=== PATIENT | male | born 1955 | race Caucasian/White ===

== ENCOUNTER → 2017-11-08 09:44 | Outpatient (CLI) | payer OTHER, SELFPAY ==
--- NOTE | 2017-11-08 09:49 | RAD_ITS ---
STUDY: X-RAY - RIGHT SHOULDER REASON FOR EXAM: Male, 62 years old. Bilateral shoulder pain TECHNIQUE: 4 view(s) of the shoulder. COMPARISON: None. FINDINGS: Normal glenohumeral articulation. There is degenerative arthrosis of the acromioclavicular joint without inferior osseous spur formation. Normal acromion. Normal humeral head and visualized proximal humerus. The soft tissue structures are unremarkable. Normal visualized pulmonary apex. RAD/Shoulder min 2 Views IMPRESSION: Degenerative changes of the acromioclavicular joint. The glenohumeral joint appears normal. There is no evidence of calcific tendinitis or bursitis. Electronically Signed: Rick Thakkar MD at 17:17 EDT , Service support ,
--- NOTE | 2017-11-08 09:49 | RAD_ITS ---
STUDY: X-RAY - LEFT SHOULDER REASON FOR EXAM: Male, 62 years old. Bilateral shoulder pain TECHNIQUE: 4 view(s) of the shoulder. COMPARISON: None. FINDINGS: Normal glenohumeral articulation. There mild degenerative changes of the left acromioclavicular joint. Normal acromion. Normal humeral head and visualized proximal humerus. The soft tissue structures are unremarkable. Normal visualized pulmonary apex. RAD/Shoulder min 2 Views IMPRESSION: Mild degenerative changes of the left acromioclavicular joint. The left glenohumeral articulation appears normal. Electronically Signed: Rick Thakkar MD at 21:51 EDT , Service support ,
== END ==
PROVIDERS: Family Provider Family Medicine; PCP Family Medicine; Visit Provider Family Medicine
DX: M25.511 Pain in right shoulder (principal); M25.512 Pain in left shoulder
CPT/HCPCS: 73030

== ENCOUNTER → 2018-02-11 10:20 | Outpatient (CLI) | payer OTHER, SELFPAY ==
[2018-02-11 11:37] LABS: PSA,Total- Diagnostic < 0.01 ng/mL (0.0-4.0)
== END ==
PROVIDERS: Family Provider Family Medicine; PCP Family Medicine; Visit Provider Urology
DX: Z85.46 Personal history of malignant neoplasm of prostate (principal)
CPT/HCPCS: 36415; 84153

== ENCOUNTER 2018-02-15 14:00 | Outpatient (RCR) | payer OTHER, SELFPAY ==
--- NOTE | 2018-01-18 18:57 | HP.PTEVAL_ITS ---
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 Date of Evaluation: 01/03/18 Physical Therapist: Skyler Blake - Visit Plan Frequency: 2x /Week Duration: 4 Weeks Plan: Start with AAROM and AROM exercises, add in joint mobilizations as tolerated. Once symptoms have started to reduce add in scapular strengthening and RTC strengthening/stability exericses. May use IFC and ice as needed. - Subjective Subjective: Pt. 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 Pt. reports having increased B shoulder pain for a few years, but recently has become worse. 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 Pt. reports increased pain with reaching, lifting, sleeping. Decreased pain: rest. Pt. did have recent xray showing degenerative changes in bilateral shoulders at AC joint, but GH joint appears to be intact. No MRI at this time. He reports L arm is worse than R. Pt. is R handed. Pt. has not trialed PT or had any pre surgeries. Pt. denies N/T in either UE and no radiating pain down his arms. Pt. is hopeful to reduce symptoms to continue with all activities without limitations. - Pain R shoulder Pain Intensity (Out of 10): 1 Pain Intensity Range: 1, 4 L shoulder Pain Intensity (Out of 10): 2 Pain Intensity Range: 0, 8 - Objective POSTURE: Pt. had rounded shoulder, increased thoracic kyphosis, protracted scapulae bilaterally. Pt. is able to correct with TCing, but not fully, no increase in pain with attempts. PALPATION: Pt. has increased soreness at subacromial space of L shoulder, minimal pain in R shoulder. Pt. has no pain throughout bilateral periscapular musculature. NEUROLOGICAL: Pt. has normal sensation throughout bilateral UEs. Pt. has 2+ biceps and triceps DTR bilaterally. Pt. has no signs of cervical impingment. ROM: R shoulder- flexion 165deg mild increase NW, abd 160deg mild increase NW, functional ER C4, functional IR L5. L shoulder- flexion 155deg increase nW, abd 145deg increase nW, functional ER C2 increase nW, functional IR L5 increase NW. Cervical ROM- stiff into ext no reproduction of symptoms. MMT: R shoulder- flexion 4+/5 increase NW, abd 4/5 increase NW, ER 4+/5 increase NW, abd 5/5 NE. L shoulder- flexion 4/5 increase NW, abd 4/5 increase NW, ER 4/5 increase NW, IR 4+/5 increase NW. - Special Tests R Shoulder Lift Off Test - Subscapular Tear: Negative R Shoulder Drop Sign - IS Test: Negative R Shoulder Empty Can - SS: Positive R Shoulder Belly Press - SupScap: Negative R Shoulder Neer - Impingement: Positive R Shoulder Scott Mao - Impingement: Positive R Shoulder Biceps Load Test - Labrum: Negative R Shoulder Speeds Test - Labrum/Biceps: Negative R Shoulder Shrug Sign - OA/Adhesive Capsulitis: Negative L Shoulder External Rotation Lag Test - RC Tear: Negative L Shoulder Lift Off Test - Subscapular Tear: Negative L Shoulder Drop Sign - IS Test: Negative L Shoulder Empty Can - SS: Positive L Shoulder Neer - Impingement: Positive L Shoulder Scott Mao - Impingement: Positive L Shoulder Shrug Sign - OA/Adhesive Capsulitis: Negative - Goals Goal 1:: Pt. to be I with HEP. Goal Time Frame: 4-6 Weeks Goal 2:: Pt. to have increased B shoulder ROM to full active with 0-1/ 10 pain allowing for increased tolerance to all ADLs and work activities. Goal Time Frame: 4-6 Weeks Goal 3:: Pt. to sleep throughout the night with 0-1/10 pain in B shoulders. Goal Time Frame: 4-6 Weeks Goal 4:: Pt. to have increased B shoulder strength by 1/2 grade throughout all effected musculature. Goal Time Frame: 4-6 Weeks - Rehabilitation Potential Physical Therapy Diagnosis: Pt. 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 Due to degenerative changes occuring at AC joint bilaterally, I can not fully rule out degenerative RTC small tear versus tendonitis due to AC joint degeneration. Pt would benefit form PT to increase B shoulder ROM and strength allowing for increased tolerance to all functional use of B UEs. Rehabilitation Potential: Good - Anticipated Interventions Patient/Client Instruction: Educate patient on: Condition, Plan of Care, Risk Factors, Benefits of Fitness Program For the Purpose of:: To foster healthy habits, To improve decision making, To facilitate caregiver knowledge, To improve self management, To prevent re-injury , To improve ability to perform tasks related to life management, To improve tolerance to ADL's Therapeutic Exercise to Include: Strength training, Power training, Body mechanics, Postural training, Flexibilty training, Passive ROM, Active ROM, Scapular Strength/Stabilization For the Purpose of:: To decrease pain, To increase ROM, To improve nutrient delivery to tissue, To increase oxygenation perfusion, To improve muscle performance and motor function, To improve ability to perform ADL's, To increase tolerance to activity/condition/position, To improve health of tissue, To decrease soft tissue restriction, To increase flexibility/ROM Manual Therapy Techniques to Include: Mobilization, Functional dry needling, Soft tissue mobilization For the Purpose of:: To decrease pain, To decrease swelling/inflammation, To increase ROM, To improve nutrient delivery to tissue IF ES: Yes Cryotherapy (ice pack, ice massage): Yes Thermo therapy (hot pack): Yes Ultrasound (thermal/non thermal): Yes For the Purpose of:: To decrease pain, To decrease swelling/inflammation, To increase ROM Thank you for the opportunity to evaluate your patient. For Medicare and Medicare HMO plans, please review the plan of care and approve it. It will need to be FAXED BACK to us at [phone] for Medicare purposes. Please let me know if there are questions or concerns regarding this plan of care. Physician Signature: Date:
--- NOTE | 2018-03-04 07:54 | HP.PTDCSUM ---
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 Discharge Date: 02/15/18 Please see the following information for a summary of their discharge status. - Subjective Subjective: Pt. reports having good days and bad days. He reports last week he believed he was getting better, but this week is right back to the same. - Pain R shoulder Pain Intensity (Out of 10): 1 L shoulder Pain Intensity (Out of 10): 4 - Overall Improvement % Improvement: 25 - Objective Objective/Function: Pt. continues to have limited ROM with LUE over head secondary to increased pain. He has weakness in his RTC, mostly with ER, flexion and abd. Pt. has decreased functional ER secondary to increased pain. Pt. has minimal symptoms currently with R shoulder. Pt. reprots being I with HEP at home. Pt. at this point in time is wondering if he needs an MRI to rule of possible RTC, degenerative in nature secondary to arthritic changes. - Goals Goal 1:: Pt. to be I with HEP. Goal Progress: Goal Met Goal 2:: Pt. to have increased B shoulder ROM to full active with 0-1/ 10 pain allowing for increased tolerance to all ADLs and work activities. Goal Progress: Not Progressing Goal 3:: Pt. to sleep throughout the night with 0-1/10 pain in B shoulders. Goal Progress: Progressing Goal 4:: Pt. to have increased B shoulder strength by 1/2 grade throughout all effected musculature. Goal Progress: Progressing - Plan Plan: Pt. to be DC to physician to determine best course of action at this point in time. Pt. may need MRi to rule out degenerative RTC tearing. - D/C Information Discharge Comments: Pt. will be DC to HEP and back to physician to determine if further imaging or evaluation is needed. If there are questions or concerns regarding this patient's physical therapy, please feel free to call me at [phone]. Thank you for the referral of this patient. Sincerely, Skyler Blake
== END 2018-02-15 19:00 | disposition home or self-care (01) ==
LOC: PT 14:00
PROVIDERS: Family Provider Family Medicine; PCP Family Medicine; Visit Provider Family Medicine
DX: M19.012 Primary osteoarthritis, left shoulder (principal); M19.011 Primary osteoarthritis, right shoulder
CPT/HCPCS: 97110; 97162

== ENCOUNTER → 2018-06-13 11:01 | Outpatient (CLI) | payer OTHER, SELFPAY ==
[2018-06-13 13:19] LABS: Anion Gap 9 (5-15); BUN 18 mg/dL (7-18); BUN/Creat Ratio 16.1 RATIO (10-20); Calcium,Total 8.8 mg/dL (8.5-10.1); Chloride 102 mmol/L (98-107); Cholesterol 179 mg/dL (200); Creatinine, Serum 1.12 mg/dL (0.70-1.30); EST Glomerular Filtration Rate 71 mL/min (>60); Est Glom Filt Rate - Afr Amer 85 mL/min (>60); Glucose 89 mg/dL (74-106); High Density Lipoprotein 73 mg/dL; Potassium 4.2 mmol/L (3.5-5.1); Sodium Level 136 mmol/L (136-145); Triglycerides 52 mg/dL; Very Low Density Lipoprotein 10 mg/dL (5-40)
== END ==
PROVIDERS: Family Provider Family Medicine; PCP Family Medicine; Referring Provider Family Medicine; Visit Provider Family Medicine
DX: I10 Essential (primary) hypertension (principal)
CPT/HCPCS: 36415; 80048; 80061

== ENCOUNTER → 2019-02-25 12:48 | Outpatient (CLI) | payer OTHER, SELFPAY ==
[2019-02-25 14:14] LABS: PSA,Total - Annual Screen < 0.01 ng/mL (0.00-4.00)
== END ==
PROVIDERS: Family Provider Family Medicine; PCP Family Medicine; Referring Provider Urology; Visit Provider Urology
DX: Z12.5 Encounter for screening for malignant neoplasm of prostate (principal)
CPT/HCPCS: 36415; 84153; G0103

== ENCOUNTER → 2019-05-28 | Outpatient (CLI) | payer OTHER, SELFPAY ==
[2019-05-28 12:30] LABS: Anion Gap 5 (5-15); BUN 25 mg/dL (7-18); Calcium,Total 9.4 mg/dL (8.5-10.1); Chloride 104 mmol/L (98-107); Cholesterol 205 mg/dL (200); EST Glomerular Filtration Rate 80 mL/min (>60); Est Glom Filt Rate - Afr Amer 97 mL/min (>60); Glucose 111 mg/dL (74-106); High Density Lipoprotein 73 mg/dL; Potassium 4.1 mmol/L (3.5-5.1); Sodium Level 135 mmol/L (136-145); Triglycerides 59 mg/dL; Very Low Density Lipoprotein 12 mg/dL (5-40)
== END | disposition home or self-care (01) ==
PROVIDERS: Family Provider Family Medicine; PCP Family Medicine; Referring Provider Family Medicine; Visit Provider Family Medicine
DX: E78.5 Hyperlipidemia, unspecified (principal)
CPT/HCPCS: 36415; 80048; 80061

== ENCOUNTER → 2019-11-26 | Outpatient (CLI) | payer OTHER, SELFPAY ==
[2019-11-26 12:46] LABS: Anion Gap 8 (5-15); BUN 22 mg/dL (7-18); Calcium,Total 9.6 mg/dL (8.5-10.1); Chloride 103 mmol/L (98-107); Cholesterol 192 mg/dL (200); EST Glomerular Filtration Rate 80 mL/min (>60); Est Glom Filt Rate - Afr Amer 97 mL/min (>60); Glucose 109 mg/dL (74-106); High Density Lipoprotein 73 mg/dL; Potassium 4.1 mmol/L (3.5-5.1); Sodium Level 137 mmol/L (136-145); Triglycerides 85 mg/dL; Very Low Density Lipoprotein 17 mg/dL (5-40)
== END | disposition home or self-care (01) ==
LOC: MFPLAB 10:22
PROVIDERS: PCP Family Medicine; Visit Provider Family Medicine
DX: I10 Essential (primary) hypertension (principal); E78.5 Hyperlipidemia, unspecified
CPT/HCPCS: 36415; 80048; 80061

== ENCOUNTER → 2020-01-06 | Outpatient (CLI) | payer OTHER, SELFPAY ==
--- NOTE | 2020-01-06 11:26 | RAD_ITS ---
STUDY: X-RAY - RIGHT HUMERUS REASON FOR EXAM: Male, 64 years old. Fell on arm yesterday, proximal humerus pain now TECHNIQUE: 4 view(s) of the humerus. COMPARISON: None. FINDINGS: Normal visualized humerus. There is no demonstrated fracture or osseous destructive process. Arthritic narrowing of the acromioclavicular joint There is no demonstrated soft tissue abnormality. There is degenerative arthrosis in the elbow joints and contour irregularities noted in the proximal radius. There is no joint effusion. The contour abnormalities may be from prior fracture. Consider dedicated elbow views if patient complains of pain in the elbow region. RAD/Humerus min 2 Views IMPRESSION: No demonstrated humeral fracture Subtle contour irregularity in the proximal right radial head, I suspect this is likely from previous healed fracture but this is a limited study. If there is acute pain in the region of the right radial head, dedicated elbow study would be recommended for further evaluation Electronically Signed: Jesus Heck MD at 11:57 EDT , Service support ,
== END | disposition home or self-care (01) ==
LOC: MTRAD 11:24
PROVIDERS: PCP Family Medicine; Referring Provider Family Medicine; Visit Provider Family Medicine
DX: S46.911A Strain of unspecified muscle, fascia and tendon at shoulder and upper arm level, right arm, initial encounter (principal)
CPT/HCPCS: 73060

== ENCOUNTER → 2020-03-05 | Outpatient (CLI) | payer OTHER, SELFPAY ==
[2020-03-05 11:56] LABS: PSA,Total- Diagnostic < 0.01 ng/mL (0.0-4.0)
== END | disposition home or self-care (01) ==
LOC: LAB 11:20
PROVIDERS: PCP Family Medicine; Referring Provider Urology; Visit Provider Urology
DX: C61 Malignant neoplasm of prostate (principal)
CPT/HCPCS: 36415; 84153

== ENCOUNTER → 2020-05-26 10:46 | Outpatient (CLI) | payer OTHER, SELFPAY ==
--- NOTE | 2020-05-26 10:49 | RAD_ITS ---
STUDY: X-RAY - RIGHT SHOULDER REASON FOR EXAM: Male, 64 years old. Right shoulder pain, fell in December TECHNIQUE: 4 view(s) of the shoulder. COMPARISON: None. FINDINGS: Normal glenohumeral articulation. There is hypertrophic osteoarthrosis of the acromioclavicular joint with inferior osseous spur formation. Normal acromion. Normal humeral head and visualized proximal humerus. The soft tissue structures are unremarkable. Normal visualized pulmonary apex. 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 Electronically Signed: Richard Mayers, at 15:50 EST , Service support ,
== END ==
PROVIDERS: PCP Family Medicine; Referring Provider Family Medicine; Visit Provider Family Medicine
DX: M25.511 Pain in right shoulder (principal)
CPT/HCPCS: 73030

== ENCOUNTER 2020-07-07 10:00 | Outpatient (RCR) | payer OTHER, SELFPAY ==
--- NOTE | 2020-06-03 09:13 | HP.PTEVAL_ITS ---
Patient's Visit Information RAEGAN THEODORE is a 64 year old M referred to Physical Therapy by Dr. Donis Del Angel MD with a diagnosis of Right Shoulder Pain. Date of Evaluation: 06/03/20 Physical Therapist: Bernice Doe DPT - Visit Plan Frequency: 2x /Week Duration: 4 Weeks Plan: 1x a week for 4 weeks with HEP. HEP: [place], Mid Row, LAE, IR, ER, Add- Green Tband - Subjective Three years ago had OA severe in both shoulders- helped minimally- retired in july and both shoulders felt great- December he fell- took x-rays- showed OA in the shoulder- he thinks more is in the shoulder- before the MRI has to have PT so here he is. Pain is on top with a protusion on the AC joint then radiates to the shoulder blade and down the elbow. He can't straighten the right arm due to an old fracture in the ulna from falling off horses years ago. Worst: 01/22 Agg: reaching out to pick something up, quick rotatations and putting his arm behind his back, quick arm overhead. Eases: ice and Ibuprofen Best: 09/22. No N/T in the fingers. Right hand domiante. No ESPARZA, blurred vision or dizziness. No Neck pain- prior or current. 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 Sleep: disturbed hard to roll over and wakes him up- stomach sleeper and side to side. 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 No injections in the shoulder. PMhx/Meds: no changes- scanned in chart. - Objective Posture: FH, RS- can correct but unable to maintain. Observation: moderate winging of the right scapula, raised AC joint. Palpation: tender along upper trap, AC Joint, Bicipital groove and infraspinatus on the scapula. ROM: Cervical: WNL, Shoulder: flexion: 160 degrees, Abd: 120 degrees, IR: belt line- pain with all ER: 50 degrees, Elbow: lacking 20 degrees of extension, Wrist: WNL. 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 Special Tests: Empty Can: positive, Neer: positive, Lift Off: Positive - Goals Goal 1:: Patient will be I with HEP and progression Goal Time Frame: 4-6 Weeks Goal 2:: Patient will demo full AROM of the right shoulder without pain Goal Time Frame: 4-6 Weeks Goal 3:: Patient will maintain proper posture to demo increased scap s/s. Goal Time Frame: 4-6 Weeks Goal 4:: Patient will repot sleeping through the night for 1 week Goal Time Frame: 4-6 Weeks - Rehabilitation Potential Physical Therapy Diagnosis: Patient presents with hypomobility- she has decreased ROM, strength, flex and muscular endurance leading to poor posture and increased pain with ADL's. Rehabilitation Potential: Fair - Anticipated Interventions Patient/Client Instruction: Educate patient on: Benefits of Fitness Program Therapeutic Exercise to Include: Strength training, Endurance training, Balance training, Coordination, Agility training, Body mechanics, Postural training, Flexibilty training, Gait and locomotor training, Neuromotor development, Passive ROM, Active ROM, Dynamic Lumbar Stabilization, Scapular Strength/Stabilization For the Purpose of:: To improve muscle performance and motor function TENS: Yes Cryotherapy (ice pack, ice massage): Yes Thermo therapy (hot pack): Yes Ultrasound (thermal/non thermal): Yes Thank you for the opportunity to evaluate your patient. For Medicare and Medicare HMO plans, please review the plan of care and approve it. It will need to be FAXED BACK to us at [phone] for Medicare purposes. For Medicare only, by signing this I certify the plan of care. Please let me know if there are questions or concerns regarding this plan of care. Physician Signature: Date:
--- NOTE | 2020-07-07 10:17 | HP.PTDCSUM_ITS ---
It has been my pleasure to treat RAEGAN THEODORE referred by Dr. Donis Del Angel MD, with the diagnosis of Right Shoulder Pain for a total of 5 visit(s). Discharge Date: Please see the following information for a summary of their discharge status. Subjective: Saw MD on 06/30 then MRI sunday early AM then Dr. Aranda and he is will review on . The shoulder feels soreness for a few days then better than normal a few days. Sleep is the worst at this point. MD mentioned a possible injection. Avoids lifting anything over shoulder height and rotation into pronation. Right Shoulder Pain Intensity (Out of 10): 5 % Improvement: 40 Objective/Function: Posture: FH, RS- can correct but unable to maintain. Observation: moderate winging of the right scapula, raised AC joint. Palpation: tender along upper trap, AC Joint, Bicipital groove and infraspinatus on the scapula. ROM: Cervical: WNL, Shoulder: flexion: 180 degrees, Abd: 150 degrees, IR: belt line- pain with all ER: 50 degrees, Elbow: lacking 20 degrees of extension, Wrist: WNL. Strength: Scap: fair, Shoulder: 4/5 isometric, Elbow: 4+/5, Wrist: 5/5 Special Tests: Empty Can: positive, Neer: positive, Lift Off: Positive Goal 1:: Patient will be I with HEP and progression Goal Progress: Goal Met Goal 2:: Patient will demo full AROM of the right shoulder without pain Goal Progress: Progressing Goal 3:: Patient will maintain proper posture to demo increased scap s/s. Goal Progress: Progressing Goal 4:: Patient will repot sleeping through the night for 1 week Goal Progress: Not Progressing Plan: Discharge to [facility] and follow up with Dr. Aranda MRI If there are questions or concerns regarding this patient's physical therapy, please feel free to call me at [phone]. Thank you for the referral of this patient. Sincerely, TARA FuentesT
== END 2020-07-07 11:04 | disposition home or self-care (01) ==
LOC: PT 10:00
PROVIDERS: PCP Family Medicine; Referring Provider Family Medicine; Visit Provider Family Medicine
DX: M25.519 Pain in unspecified shoulder (principal)
CPT/HCPCS: 97110; 97161; 97164

== ENCOUNTER → 2020-07-10 07:12 | Outpatient (CLI) | payer OTHER, SELFPAY ==
--- NOTE | 2020-07-10 07:45 | MRI_ITS ---
STUDY: MRI RIGHT SHOULDER REASON FOR EXAM: Male, 65 years old. RIGHT shoulder sprain, fall. Constant sharp pain, ROM TECHNIQUE: Standardized fat and water weighted pulse sequences were obtained in all 3 orthogonal planes. COMPARISON: X-ray May 26, 2020 FINDINGS: There is a full-thickness tear of the distal supraspinatus tendon, series 6 image . Normal infraspinatus tendon. Normal subscapularis tendon. Normal teres minor tendon. Normal supraspinatus muscle. Normal infraspinatus muscle. Normal subscapularis muscle. Normal teres minor muscle. Normal glenohumeral articulation. There is small joint effusion. Small cysts of the posterior lateral humeral head. Normal biceps labral complex. Normal intracapsular long biceps tendon. There are tears of the superior and anterior glenoid labrum. Normal capsulo- ligamentous complex. Normal rotator interval. There is hypertrophic osteoarthritis of the acromioclavicular articulation with impingement upon the musculotendinous junction of the supraspinatus muscle. There is a Type II morphology (curved) acromions, with a neutral orientation. There is mild fluid distention of the subacromial bursa, consistent with mild subacromial-subdeltoid bursitis. Normal visualized coracohumeral and coracoacromial ligaments. Normal quadrilateral space. Normal axillary space. Normal deltoid muscle. Normal trapezius muscle. MRI/Upper Ext Joint Only(Routine) IMPRESSION: Rotator cuff tear of the supraspinatus tendon. Tears of the superior and anterior glenoid labrum. Acromioclavicular spurring with impingement. Joint effusion. Subacromial subdeltoid bursitis. Electronically Signed: Pj Novak MD at 14:39 EST , Service support ,
== END ==
PROVIDERS: PCP Family Medicine; Referring Provider Orthopaedic Surgery; Visit Provider Orthopaedic Surgery
DX: S43.401A Unspecified sprain of right shoulder joint, initial encounter (principal)
CPT/HCPCS: 73221

== ENCOUNTER 2020-10-18 09:50 | Day surgery (SDC) | payer OTHER, SELFPAY ==
--- NOTE | 2020-10-11 10:59 | EKG12_ITS ---
Test Reason : PREOP Blood Pressure : / mmHG Vent. Rate : 056 BPM Atrial Rate : 056 BPM P-R Int : 182 ms QRS Dur : 086 ms QT Int : 418 ms P-R-T Axes : 074 010 047 degrees QTc Int : 403 ms Sinus bradycardia Otherwise normal ECG Confirmed by MIO BEEBE, JAREN ([id number]), city editor TONY GONSALEZ ([id number]) on 10/12/2020 10:45:28 AM Referred By: Andres Aranda Confirmed By:JAREN LIEBERMAN MD
[2020-10-11 11:42] LABS: Hemoglobin 16.2 g/dL (13.0-16.5); Mean Corp Hgb Conc 33.1 g/dL (32-36); Mean Corpuscular Hgb 30.4 pg (27.0-32.0); Mean Corpuscular Volume 91.9 fL (80-94); Mean Platelet Vol. 8.9 fl (6.2-12.0); Platelet Count 269 K/mm3 (150-450); RBC Distribution Width CV 12.4 % (11.6-14.6); RBC Distribution Width SD 42.1 fl (35.1-43.9); Red Blood Count 5.33 M/mm3 (4.6-6.2); White Blood Count 5.9 K/mm3 (4.4-11.0)
[2020-10-11 11:50] LABS: International Normalized Ratio 0.9; Prothrombin Time (Protime)PT. 11.8 SECONDS (11.7-14.9)
[2020-10-11 11:51] LABS: Partial Thromboplast Time 31.2 Seconds (24.1-36.2)
[2020-10-11 12:26] LABS: Anion Gap 4 (5-15); BUN 19 mg/dL (7-18); BUN/Creat Ratio 15.3 RATIO (10-20); Calcium,Total 9.3 mg/dL (8.5-10.1); Chloride 102 mmol/L (98-107); Creatinine, Serum 1.24 mg/dL (0.70-1.30); EST Glomerular Filtration Rate 62 mL/min (>60); Est Glom Filt Rate - Afr Amer 75 mL/min (>60); Glucose 104 mg/dL (74-106); Potassium 4.3 mmol/L (3.5-5.1); Sodium Level 136 mmol/L (136-145)
[2020-10-11 12:28] LABS: AST(SGOT) 13 U/L (15-37); Alanine Aminotransfer ALT/SGPT 23 U/L (16-61); Albumin, Serum 3.9 g/dL (3.2-5.0); Alkaline Phosphatase 68 U/L (45-117); Bilirubin, Direct 0.15 mg/dL (0.00-0.30); Globulin 3.5 g/dL (2.2-4.2); Protein, Total 7.4 g/dL (6.4-8.2)
[2020-10-18] VITALS (7 sets, daily range): BP systolic 125–160; BP diastolic 54–82; PULSE 51–73; RESP 16; TEMP 36.2–36.7; O2SAT 94–100; BMI 22.1
[2020-10-18] MEDS: Lactated Ringers 1,000 ML 100 ML IV ×2 (10:35→14:00)
[2020-10-18] MEDS: Cefazolin 1 GM/50 ML BAG IV (13:03)
[2020-10-18] MEDS: Epinephrine (1 mg/ml) 1 MG/ML VIAL (14:41)
--- NOTE | 2020-10-18 15:05 | PRO.PCM_ITS ---
Procedure Report Date of Procedure: 10/18/20 Preoperative diagnosis: Right shoulder rotator cuff tear, impingement syndrome, acromioclavicular joint arthritis Postoperative diagnosis: Same Procedure: Right shoulder arthroscopy,, arthroscopic subacromial decompression, arthroscopic distal clavicle excision ,rotator cuff repair Surgeon: Dr. Andres Aranda Core Drilling Supervisor: Mere Cortez PA-C Anesthesia: Dr West , general with inter scalene nerve block preoperatively Antibiotics: Ancef Complications: None EBL: Less than 20 Indications for surgery: Patient is a 65-year-old male with history of right shoulder problems. he has had injuries. he failed conservative measures. MRI showed rotator cuff tear. he also had impingement pain and significant acromioclavicular joint arthritis with pain at that joint. he wished to have surgery. Appropriate informed consent was obtained and signed Findings: Full-thickness rotator cuff tear of the supraspinatus tendon, type II acromion with AC joint bone spurs inferiorly, , stable biceps tendon he underwent arthroscopic shoulder evaluation, arthroscopic subacromial decompression, distal clavicle excision arthroscopically, arthroscopic rotator cuff repair using Arthrex 4.75 mm anchor with a fiber tape suture in a horizontal mattress fashion, speed fix. 2 fiber link sutures were used in between and a ripstop technique greenhouse assistant, physician assistant dean of students was utilized throughout the entire procedure. She help with patient positioning. Holding the limb holding of re tractors. She help with appropriate exposure throughout the procedure. Sharp with suture passing. She help with implantation of anchor. Wound closure bandage application sling application. Without surgical clinical reviewer surgical time would have been increased and surgical outcome could have been less optimal Procedure: Patient was taken to the operating room and transferred to the OR table. he had been given an interscalene nerve block preoperatively. he was placed under general anesthetic. Ancef was given IV preoperatively. Appropriate timeouts performed. he was placed in the [place] beachchair positioner. Right shoulder had full range of motion. Right shoulder and upper extremity were prepped padded draped in usual orthopedic sterile fashion for the procedure. We began by making a posterior portal through skin with a knife dull trocar took me into the joint while the assistant dean of students distracted the humeral head laterally. We atraumatically entered the glenohumeral joint. We noted intact biceps anchor. . We noted no severe arthritis of the glenohumeral joint. There was some fraying of the rotator cuff just posterior to the biceps groove. Did identify a full-thickness tear at this point. Pictures were taken. Anterior portal was established with a knife followed by dull trocar to command the joint. We probed the biceps anchor. We probed the intact labrum. We p robed the glenohumeral joint and rotator cuff. Pictures were taken. We now went to the subacromial space and established a lateral portal. This was taken through skin with a knife. Dull trocar took me into the subacromial space. We performed a decompression using a werewolf debrider on the undersurface acromion. The abundant soft tissue was resected. Acromioplasty was carried out with a shaver as well as a bur making the acromion flat from front to back side to side extending underneath the lateral clavicle which was bulbous. 6 mm bur was utilized to further debride the bone spurs from the undersurface of the distal clavicle. Bur was then placed in the anterior portal to remove approximately 6 to 8 mm of distal clavicle completely decompressing the acromioclavicular joint. Pictures taken throughout. We now could fully visualize the rotator cuff from superiorly. On probing it there was a full- thickness tear just posterior , lateral to the biceps. Was lightly debrided with a shaver bringing us back to healthy full-thickness rotator cuff tissue. We also used the shaver and bur on the greater tuberosity to freshen the bone at the repair site. We then used a tendon grasper to mobilize the tendon adequately which was done. Next the fiber tape suture was placed through a portal that was placed with a plastic cannula through a lateral portal. We passed 1 limb through the anterior portion of the tear and out anteriorly. The other limb was placed through the posterior portion of the tear making a horizontal mattress suture. 2 fiber link sutures were placed in between the previously placed Burnham tape. Both limbs were now placed through the cannula and the tendon mobilized nicely. We used a 4.75 millimeters anchor that did have adequate purchase in bone, all 4 suture limbs have been placed through it.. All 4 suture limbs cut off above the anchor. Site was visualized with shoulder in internal and external rotation in good repair was noted. Adequate dec ompression was still noted. Shoulder was drained of the excess fluid. Arthroscopic instruments removed. Portals were closed with simple and horizontal mattress sutures. Arm sling was applied. ABD was placed in the axilla. Patient will be discharged home today. Passive shoulder motion for 6 weeks. Adequate pain medication prescribed. She will follow-up in the office in 7 to 10 days. Ancef was used as a perioperative antibiotic 2 g IV. This note was generated with [employer] dictation software. It may contain incorrect words, spelling, and punctuation that were not noted in checking the note before signing.
== END 2020-10-18 16:20 | disposition home or self-care (01) ==
LOC: SDC 09:51 → AC 09:52
PROVIDERS: Anesthesiology; PCP Family Medicine; Referring Provider Orthopaedic Surgery; Visit Provider Orthopaedic Surgery
PROC: (CPT 29827; principal; 2020-10-18 11:10)
DX: M19.011 Primary osteoarthritis, right shoulder (principal); M75.41 Impingement syndrome of right shoulder; S46.011A Strain of muscle(s) and tendon(s) of the rotator cuff of right shoulder, initial encounter; I10 Essential (primary) hypertension; E78.00 Pure hypercholesterolemia, unspecified; Z87.891 Personal history of nicotine dependence; Z79.899 Other long term (current) drug therapy; Z20.822 Contact with and (suspected) exposure to COVID-19; W17.89XA Other fall from one level to another, initial encounter; Y93.89 Activity, other specified; Y92.89 Other specified places as the place of occurrence of the external cause; Y99.8 Other external cause status
CPT/HCPCS: 01630; 29824; 29826; 29827; 64450; 36415; 80048; 80076; 85027; 85610; 85730; 87426; 93005; C9803; J7120; J2405

== ENCOUNTER → 2021-02-16 09:46 | Outpatient (CLI) | payer OTHER, SELFPAY ==
[2020-10-18 10:12] VITALS: BMI 22.1
[2021-02-16 11:57] LABS: PSA,Total- Diagnostic < 0.01 ng/mL (0.0-4.0)
== END ==
PROVIDERS: PCP Family Medicine; Referring Provider Urology; Visit Provider Urology
DX: R97.20 Elevated prostate specific antigen [PSA] (principal)
CPT/HCPCS: 36415; 84153

== ENCOUNTER 2021-02-21 10:00 | Outpatient (RCR) | payer OTHER, SELFPAY ==
[2020-10-18 10:12] VITALS: BMI 22.1
--- NOTE | 2020-11-03 10:54 | HP.PTEVAL ---
Patient's Visit Information RAEGAN THEODORE is a 65 year old M referred to Physical Therapy by Dr. Andres Aranda MD with a diagnosis of Right RTC Repair. Date of Evaluation: 11/03/20 Physical Therapist: Bernice Doe DPT - Visit Plan Frequency: 2-3x /Week Duration: 4 Weeks Plan: RTC Repair 10/18/2020-. Does not like e-stim. HEP Reviewed given by MD: seated ER AAROM, seated shoulder flexion AAROM, pendulums - Subjective Right RTC Repair October [address] Aranda- has been wearing the sling when he is up and about- he takes it off when he sits down. Saw MD who was not happy with progress so he has been pushing it more. Right hand dominate. Worst: 6/10 Agg: sleeping Best: 0/10 Eases: putting the arm in a comfortable position, hot shower, heating pad. Sitting here currently 0/10 pain. Describes the pain as dull and achy. Pain is located in the AC joint, and in the collar bone and shoulder blade. Occasionally radiates to the deltoid. No Blurred vision, neck pain, dizziness. No problems with finger dexterity or film sound coordinator strength.. Sleeping: recliner- painful- constant ache- normally a stomach sleeper. No N/T in right hand. 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 - Objective Posture: FH, RS, can correct and maintain after given verbal cues. Observation: wearing sling- good healing incision no s/s of infection. Gait: no arm swing on the right- good trunk rotation and posture. Palpation tender along tip of the acromion, AC Joint infraspinatus. ROM: Cervical: WNl no pain or tightness. Shoulder: AROM: not tested, AAROM per MD exercises- Flexion: 90 degrees, ER: 50 degrees, PROM: guarded Flexion: 100 degrees, Abd: 80 degrees, IR: to belly, ER: 50 degrees- empty end feel pt reports pain and discomfort. Elbow: WFL- does not have full extn which patient reports from old injury. Wrist/Hand: WFL. Strength: Scap: fair, Shoulder: not tested Elbow: 4+/5 Wrist: 5/5, Waiter/Waitress Cabin Class:Left: 60 lbs of force Right: 30 lbs of force - Goals Goal 1:: Patient will be I with HEP and progression Goal Time Frame: 4-6 Weeks Goal 2:: Patient will demo full AROM of the right shoulder (as per protocol) Goal Time Frame: 4-6 Weeks Goal 3:: Patient will maintain proper posture t/o tx session to demo increased scap s/s. Goal Time Frame: 4-6 Weeks Goal 4:: Patient will return to sleeping in his bed without waking from pain for 1 week Goal Time Frame: 4-6 Weeks - Rehabilitation Potential Physical Therapy Diagnosis: Patient presents s/p RTC Repair 10/18/2020. He has decreased ROM, strength, and muscular endurance expected after procedure leading to poor posture and decreased ability to perform ADL's. Rehabilitation Potential: Good - Anticipated Interventions Patient/Client Instruction: Educate patient on: Benefits of Fitness Program Therapeutic Exercise to Include: Strength training, Endurance training, Body mechanics, Postural training, Flexibilty training, Passive ROM, Active ROM, Dynamic Lumbar Stabilization, Scapular Strength/Stabilization For the Purpose of:: To increase ROM, To improve muscle performance and motor function TENS: No Cryotherapy (ice pack, ice massage): Yes Thermo therapy (hot pack): Yes Ultrasound (thermal/non thermal): No For the Purpose of:: To decrease pain Thank you for the opportunity to evaluate your patient. For Medicare and Medicare HMO plans, please review the plan of care and approve it. It will need to be FAXED BACK to us at [phone] for Medicare purposes. For Medicare only, by signing this I certify the plan of care. Please let me know if there are questions or concerns regarding this plan of care. Physician Signature: Date:
--- NOTE | 2020-12-02 10:38 | HP.PTREVAL_ITS ---
Dr. Andres Aranda MD, It has been my pleasure to treat RAEGAN THEODORE over the last 11 visits for Right RTC Repair. Please see the progress note below for an update on the physical therapy plan of care! Subjective: Patient reports that he saw MD last week- wants him to keep doing phase 2 until he sees him. He reports that he has tightness and discomfort but not pain. It will ache but then goes away. Sleep is much improved and he isnt having problems. Is doing all the stick motions, table walk aways, pulleys. Objective/Function: Posture: good throughout. Gait: good arm swing and trunk rotation. AAROM: WFL in all planes AROM:Flexion: 90 degrees Abd 80 degrees, IR: Thumb to T8, ER: 50 degrees Plan Plan: 12/02/2020: 1x every 2 weeks- for ROM and progression of ROM. RTC Repair 10/18/2020- Dr Morel with starting Phase 3 on January 07- per pt. Does not like e- stim Goals Goal 1:: Patient will be I with HEP and progression Goal Time Frame: 4-6 Weeks Goal Progress: Progressing Goal 2:: Patient will demo full AROM of the right shoulder (as per protocol) Goal Time Frame: 4-6 Weeks Goal Progress: Progressing Goal 3:: Patient will maintain proper posture t/o tx session to demo increased scap s/s. Goal Time Frame: 4-6 Weeks Goal Progress: Progressing Goal 4:: Patient will return to sleeping in his bed without waking from pain for 1 week Goal Time Frame: 4-6 Weeks Goal Progress: Progressing Anticipated Interventions Patient/Client Instruction: Educate patient on: Benefits of Fitness Program Therapeutic Exercise to Include: Strength training, Endurance training, Body mechanics, Postural training, Flexibilty training, Passive ROM, Active ROM, Dynamic Lumbar Stabilization, Scapular Strength/Stabilization For the Purpose of:: To increase ROM, To improve muscle performance and motor function TENS: No Cryotherapy (ice pack, ice massage): Yes Thermo therapy (hot pack): Yes Ultrasound (thermal/non thermal): No For the Purpose of:: To decrease pain Please do not hesitate to contact me at [phone] by phone or if you have questions or concerns regarding this new plan of care! Sincerely, Bernice Doe DPT
--- NOTE | 2021-01-13 10:30 | HP.PTREVAL_ITS ---
Dr. Andres Aranda MD, It has been my pleasure to treat RAEGAN THEODORE over the last 13 visits for Right RTC Repair. Please see the progress note below for an update on the physical therapy plan of care! Subjective: pt. reports overall doing well. He is to follow up with the physician next week. Objective/Function: AROM: R shoulder: flexion 160deg, abd 150deg, functional ER: C6, functional IR T3. PROM: R shoulder- flexion 168deg, abd 170deg, ER at 90deg 85deg, IR at 90deg 50deg. Pt. is still a little stiff with over head motions, but is overall doing very well. He reports minimal issues with most daily activities, minimal issues with sleeping. Overall doing. Pt. hopeful to to being strengthening when you feel he is ready. He is overall doing well with his ROM. Pt. is seen physician next week then follow up with PT pending physician instruction. Plan Plan: Pt. to see physician next week then follow back up with PT. Hopefully ready to begin strengthening. Pt. to schedule with [facility]. Goals Goal 1:: Patient will be I with HEP and progression Goal Time Frame: 4-6 Weeks Goal Progress: Progressing Goal 2:: Patient will demo full AROM of the right shoulder (as per protocol) Goal Time Frame: 4-6 Weeks Goal Progress: Progressing Goal 3:: Patient will maintain proper posture t/o tx session to demo increased scap s/s. Goal Time Frame: 4-6 Weeks Goal Progress: Progressing Goal 4:: Patient will return to sleeping in his bed without waking from pain for 1 week Goal Time Frame: 4-6 Weeks Goal Progress: Progressing Anticipated Interventions Patient/Client Instruction: Educate patient on: Benefits of Fitness Program Therapeutic Exercise to Include: Strength training, Endurance training, Body mechanics, Postural training, Flexibilty training, Passive ROM, Active ROM, Dynamic Lumbar Stabilization, Scapular Strength/Stabilization For the Purpose of:: To increase ROM, To improve muscle performance and motor function TENS: No Cryotherapy (ice pack, ice massage): Yes Thermo therapy (hot pack): Yes Ultrasound (thermal/non thermal): No For the Purpose of:: To decrease pain Please do not hesitate to contact me at [phone] by phone or Fax: if you have questions or concerns regarding this new plan of care! Sincerely, TARA BelloT
== END 2021-02-21 19:00 | disposition home or self-care (01) ==
LOC: PT 10:00
PROVIDERS: PCP Family Medicine; Referring Provider Orthopaedic Surgery; Visit Provider Orthopaedic Surgery
DX: S43.421D Sprain of right rotator cuff capsule, subsequent encounter (principal); X58.XXXD Exposure to other specified factors, subsequent encounter; M19.011 Primary osteoarthritis, right shoulder; M75.41 Impingement syndrome of right shoulder
CPT/HCPCS: 97110; 97140; 97161; 97164; 97530

== ENCOUNTER → 2021-06-01 09:41 | Outpatient (CLI) | payer OTHER, SELFPAY ==
[2021-06-01 13:08] LABS: Albumin, Serum 3.8 g/dL (3.2-5.0); BUN 26 mg/dL (7-18); BUN/Creat Ratio 24.1 RATIO (10-20); Creatinine, Serum 1.08 mg/dL (0.70-1.30); EST Glomerular Filtration Rate 73 mL/min (>60); Est Glom Filt Rate - Afr Amer 88 mL/min (>60); Globulin 4.1 g/dL (2.2-4.2); Glucose 99 mg/dL (74-106); Protein, Total 7.9 g/dL (6.4-8.2)
[2021-06-01 13:09] LABS: ALB/GLOB Ratio 0.9 RATIO (0.9-2.4); AST(SGOT) 11 U/L (15-37); Alanine Aminotransfer ALT/SGPT 21 U/L (16-61); Alkaline Phosphatase 64 U/L (45-117); Anion Gap 6 (5-15); Calcium,Total 9.4 mg/dL (8.5-10.1); Chloride 103 mmol/L (98-107); Cholesterol 199 mg/dL (200); High Density Lipoprotein 72 mg/dL; Potassium 4.2 mmol/L (3.5-5.1); Sodium Level 137 mmol/L (136-145); Triglycerides 60 mg/dL; Very Low Density Lipoprotein 12 mg/dL (5-40)
== END ==
PROVIDERS: PCP Family Medicine; Referring Provider Family Medicine; Visit Provider Family Medicine
DX: E78.5 Hyperlipidemia, unspecified (principal)
CPT/HCPCS: 36415; 80053; 80061

== ENCOUNTER → 2022-03-01 | Outpatient (CLI) | payer OTHER, SELFPAY ==
[2022-03-01 15:25] LABS: PSA,Total- Diagnostic < 0.01 ng/mL (0.0-4.0)
== END | disposition home or self-care (01) ==
PROVIDERS: PCP Family Medicine; Visit Provider Urology
DX: C61 Malignant neoplasm of prostate (principal)
CPT/HCPCS: 36415; 84153

== ENCOUNTER → 2022-05-31 | Outpatient (CLI) | payer OTHER, SELFPAY ==
[2022-05-31 12:46] LABS: Anion Gap 9 (5-15); BUN 23 mg/dL (7-18); BUN/Creat Ratio 18.9 RATIO (10-20); Calcium,Total 9.8 mg/dL (8.5-10.1); Chloride 102 mmol/L (98-107); Cholesterol 231 mg/dL (200); Creatinine, Serum 1.22 mg/dL (0.70-1.30); EST Glomerular Filtration Rate 63 mL/min (>60); Est Glom Filt Rate - Afr Amer 76 mL/min (>60); Glucose 115 mg/dL (74-106); High Density Lipoprotein 75 mg/dL; Potassium 3.9 mmol/L (3.5-5.1); Sodium Level 137 mmol/L (136-145); Triglycerides 124 mg/dL; Very Low Density Lipoprotein 25 mg/dL (5-40)
== END | disposition home or self-care (01) ==
LOC: MFPLAB 10:17
PROVIDERS: PCP Family Medicine; Referring Provider Family Medicine; Visit Provider Family Medicine
DX: I10 Essential (primary) hypertension (principal)
CPT/HCPCS: 36415; 80048; 80061

== ENCOUNTER → 2022-11-29 | Outpatient (CLI) | payer OTHER, SELFPAY ==
[2022-11-29 12:42] LABS: Anion Gap 8 (5-15); BUN 26 mg/dL (7-18); BUN/Creat Ratio 24.5 RATIO (10-20); Calcium,Total 9.3 mg/dL (8.5-10.1); Chloride 108 mmol/L (98-107); Cholesterol 218 mg/dL (200); Creatinine, Serum 1.06 mg/dL (0.70-1.30); EST Glomerular Filtration Rate 74 mL/min (>60); Est Glom Filt Rate - Afr Amer 90 mL/min (>60); Glucose 117 mg/dL (74-106); High Density Lipoprotein 71 mg/dL; Sodium Level 138 mmol/L (136-145); Triglycerides 60 mg/dL; Very Low Density Lipoprotein 12 mg/dL (5-40)
== END | disposition home or self-care (01) ==
LOC: MFPLAB 10:08
PROVIDERS: PCP Family Medicine; Visit Provider Family Medicine
DX: I10 Essential (primary) hypertension (principal)
CPT/HCPCS: 36415; 80048; 80061

== ENCOUNTER → 2023-03-06 | Outpatient (CLI) | payer OTHER, SELFPAY ==
[2023-03-06 11:40] LABS: PSA,Total- Diagnostic < 0.01 ng/mL (0.0-4.0)
== END | disposition home or self-care (01) ==
LOC: LAB 10:11
PROVIDERS: PCP Family Medicine; Referring Provider Urology; Visit Provider Urology
DX: C61 Malignant neoplasm of prostate (principal)
CPT/HCPCS: 36415; 84153

== ENCOUNTER → 2023-05-28 | Outpatient (CLI) | payer OTHER, SELFPAY ==
[2023-05-28 12:48] LABS: Anion Gap 8 (5-15); BUN 23 mg/dL (7-18); BUN/Creat Ratio 19.7 RATIO (10-20); Calcium,Total 9.6 mg/dL (8.5-10.1); Chloride 104 mmol/L (98-107); Cholesterol 175 mg/dL (200); Creatinine, Serum 1.17 mg/dL (0.70-1.30); EST Glomerular Filtration Rate 66 mL/min (>60); Est Glom Filt Rate - Afr Amer 80 mL/min (>60); Glucose 103 mg/dL (74-106); High Density Lipoprotein 81 mg/dL; Potassium 3.7 mmol/L (3.5-5.1); Sodium Level 137 mmol/L (136-145); Triglycerides 81 mg/dL; Very Low Density Lipoprotein 16 mg/dL (5-40)
== END | disposition home or self-care (01) ==
LOC: MFPLAB 10:19
PROVIDERS: PCP Family Medicine; Visit Provider Family Medicine
DX: I10 Essential (primary) hypertension (principal)
CPT/HCPCS: 36415; 80048; 80061

== ENCOUNTER → 2023-12-07 | Outpatient (CLI) | payer MEDICARE, OTHER, SELFPAY ==
[2023-12-07 11:03] LABS: Anion Gap 8 (5-15); BUN 19 mg/dL (7-18); Chloride 104 mmol/L (98-107); Cholesterol 208 mg/dL (200); Creatinine, Serum 1.12 mg/dL (0.70-1.30); EST Glomerular Filtration Rate 69 mL/min (>60); Est Glom Filt Rate - Afr Amer 84 mL/min (>60); Glucose 116 mg/dL (74-106); High Density Lipoprotein 72 mg/dL; PSA,Total- Diagnostic < 0.01 ng/mL (0.0-4.0); Potassium 3.8 mmol/L (3.5-5.1); Sodium Level 137 mmol/L (136-145); Triglycerides 74 mg/dL; Very Low Density Lipoprotein 15 mg/dL (5-40)
== END | disposition home or self-care (01) ==
PROVIDERS: PCP Family Medicine; Visit Provider Family Medicine
DX: I10 Essential (primary) hypertension (principal); Z85.46 Personal history of malignant neoplasm of prostate
CPT/HCPCS: 36415; 80048; 80061; 84153

== ENCOUNTER → 2024-05-29 | Outpatient (CLI) | payer MEDICARE, OTHER, SELFPAY ==
[2024-05-29 13:26] LABS: AST(SGOT) 8 U/L (15-37); Alanine Aminotransfer ALT/SGPT 19 U/L (16-61); Albumin, Serum 3.7 g/dL (3.2-5.0); Alkaline Phosphatase 56 U/L (45-117); Anion Gap 7 (5-15); BUN 27 mg/dL (7-18); Calcium,Total 9.4 mg/dL (8.5-10.1); Chloride 104 mmol/L (98-107); Cholesterol 214 mg/dL (200); Creatinine, Serum 1.04 mg/dL (0.70-1.30); EST Glomerular Filtration Rate 76 mL/min (>60); Est Glom Filt Rate - Afr Amer 91 mL/min (>60); Globulin 3.6 g/dL (2.2-4.2); Glucose 109 mg/dL (74-106); High Density Lipoprotein 78 mg/dL; PSA,Total - Annual Screen < 0.01 ng/mL (0.00-4.00); Protein, Total 7.3 g/dL (6.4-8.2); Sodium Level 135 mmol/L (136-145); Triglycerides 83 mg/dL; Very Low Density Lipoprotein 17 mg/dL (5-40)
== END | disposition home or self-care (01) ==
LOC: MFPLAB 10:54
PROVIDERS: PCP Family Medicine; Referring Provider Family Medicine; Visit Provider Family Medicine
DX: I10 Essential (primary) hypertension (principal); E78.5 Hyperlipidemia, unspecified; Z12.5 Encounter for screening for malignant neoplasm of prostate
CPT/HCPCS: 36415; 80053; 80061; 84153; G0103

== ENCOUNTER 2024-10-31 08:00 | Day surgery (SDC) | payer MEDICARE, OTHER, SELFPAY ==
[2024-10-31] VITALS (10 sets, daily range): BP systolic 97–153; BP diastolic 66–92; PULSE 72–88; RESP 16; TEMP 36.2–36.4; O2SAT 92–97; BMI 24.4
--- NOTE | 2024-10-31 08:10 | PCM.PRE.AN2 ---
ASA Classification* ASA Classification ASA Classification: 2 Assessment & Plan Anesthesia* Anesthesia Assessment Anesthesia Assessment: Discussed sedation and/or anesthesia options, risks, benefits, and alternatives with patient/parents/legal guardian/POA. Questions invited. The patient/parents/legal guardian/POA seems to understand and agrees to proceed with anesthesia plan. Reviewed the physical assessment, medical history, allergy history and patient home medications list prior to surgery/procedure/anesthetic and documented any changes. Performed airway and anesthesia risk assessments. Anesthesia Type Anesthesia Type: MAC Anesthesia Focused Assessment* Airway Assessment Mouth opens: >3 cm Mallampati Score: II Focused Labs Anesthesia Preop lab: CBC WBC 5.9 K/mm3 (4.4-11.0) 10/11/20 11:07 10/11/20 RBC 5.33 M/mm3 (4.6-6.2) 10/11/20 11:07 10/11/20 Hgb 16.2 g/dL (13.0-16.5) 10/11/20 11:07 10/11/20 Hct 49.0 % (40-54) 10/11/20 11:07 10/11/20 Plt Count 269 K/mm3 (150-450) 10/11/20 11:07 10/11/20 CHEMISTRY Potassium 4.0 mmol/L (3.5-5.1) 05/29/24 10:55 05/29/24 Sodium 135 mmol/L (136-145) L 05/29/24 10:55 05/29/24 BUN 27 mg/dL (7-18) H 05/29/24 10:55 05/29/24 Creatinine 1.04 mg/dL (0.70-1.30) 05/29/24 10:55 05/29/24 Glucose 109 mg/dL (74-106) H 05/29/24 10:55 05/29/24 COAG PT 11.8 SECONDS (11.7-14.9) 10/11/20 11:07 10/11/20 Pre-Assessment Diagnosis/Proposed Procedure Planned Operative Procedure(s): COLONOSCOPY Anesthesia History Anesthesia History - germination 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 When Was Last Pacemaker Check QUESTION #4 FULL TEXT: You/Your Family Experience fever (hyperthermia) with Anesthesia Last Oral Intake Last Oral intake: Last Oral Intake NPO since Meds taken in AM with sips of water? Meds patient instructed to take am of surgery PONV PONV - germination testing manager: PONV - germination testing manager Female No 10/24/24 13:42 HX of Motion Sickness No 10/24/24 13:42 HX of N/V After Surgery Yes 10/24/24 13:42 Non-Smoker Yes 10/24/24 13:42 Duration of Surgery greater No 10/24/24 13:42 than 60 minutes Number of Risk Factors 2 10/24/24 13:42 PONV Score Moderate Risk 10/24/24 13:42 Height & Weight Height & Weight: Anesthesia: Height & Weight Height 6 ft 1 in 08/26/24 08:38 Respiratory Assessment Respiratory Assessment - germination testing manager: Respiratory Tract Infection Hx - germination testing manager Hx Respiratory Tract Infection No 10/24/24 13:42 STOP Sleep Apnea STOP Sleep Apnea - germination testing manager: STOP Sleep Apnea - germination testing manager Hx Hypertension Yes: per pt, controlled on 10/24/24 13:42 meds Hx Sleep Apnea No 10/24/24 13:42 CPAP No 10/18/20 14:56 BIPAP No 10/11/20 08:37 Do you snore loudly (louder No 10/24/24 13:42 than talking or can be heard Do you often feel tired/ No 10/24/24 13:42 fatigued/ sleepy during daytime? Has anyone observed you stop No 10/24/24 13:42 breathing during sleep? STOP Results Negative 10/24/24 13:42 QUESTION #5 FULL TEXT : Do you snore loudly (louder than talking or can be heard through closed doors)? Tobacco Use History Tobacco Use History - germination testing manager: Tobacco Use History - germination testing manager Tobacco Use Smoking Status Former smoker 10/24/24 13:42 Hx Tobacco Use No 10/24/24 13:42 Years Smoking Packs Smoked per Day Smoking Cessation Date was No - quit smoking greater 10/24/24 13:42 within the last 15 years than 15 years ago Hx Smoking Cessation Date Hx Smoking Cessation Counseling Hematologic Medial History Hematologic Hx - germination testing manager: Hematologic Medical Hx - scheduling agent Hx of Blood Transfusion No 10/24/24 13:42 Hx of Transfusion in last 3 No 10/24/24 13:42 Months Date of Last Transfusion (if within last 3 months) Ever experience any problems No 10/24/24 13:42 with transfusion(s)? Specify any problems Hx of Preganancy in last 3 N/A 10/24/24 13:42 Months Nurse Filling Out Transfusion MGRIFFITH 10/24/24 13:42 & Questions: Date: 10/24/24 10/24/24 13:42 Time: 13:45 10/24/24 13:42 Patient unable to answer at this time (ie. confused, unrespo /Reproduction History /Reproductive History - germination testing manager: /Reproductive Hx- germination testing manager Hx Now Gestational Age (in weeks): EDC: Hx Hx Para Hx Section SAB PFSH Medical History Wears glasses Wears dentures Cancer Depression Anxiety Alcohol use Arthritis Excessive bleeding Easy bruising High cholesterol Injury of head and neck Injury of back Gastric reflux Former smoker Leg cramps PONV (postoperative nausea and vomiting) Wears hearing aid HTN (hypertension) Home Medications ?Medication ?Instructions ?Recorded ?Last Taken ?Type atorvastatin 10 mg tablet 10 mg PO DAILY 07/21/14 07/29/14 05:15 History lisinopril 5 mg tablet 5 mg PO DAILY 07/21/14 10/18/20 History acetaminophen 325 mg tablet 325 mg PO ONCE PRN pain 08/26/24 Unknown History (Tylenol) hydrochlorothiazide 25 mg tablet 25 mg PO DAILY 08/26/24 Unknown History sildenafil 25 mg tablet 20 mg PO QDAY PRN ED 08/26/24 Unknown History calcium carbonate ([employer] 1,000 mg PO BID PRN dyspepsia 10/24/24 Unknown History Heartburn Chew) nortriptyline 50 mg capsule 50 mg PO QHS 10/24/24 Unknown History quetiapine 25 mg tablet 25 mg PO QHS 10/24/24 Unknown History Allergy/AdvReac Type Severity Reaction Status Date / Time No Known Allergies Allergy Verified 10/24/24 13:34 Family History Mother Colon polyp Surgical History History of prostatectomy History of repair of right rotator cuff History of meniscectomy of right knee History of surgery History of hernia surgery Hx of colonoscopy Social History Smoking Status: Former smoker Review of Systems (Anesthesia) ROS Narrative System reviewed and no additional complaints, except as documented.
--- NOTE | 2024-10-31 08:55 | H&P.OPEN ---
HPI - General HPI Narrative RAEGAN THEODORE, is a 69 M who presents for screening colonoscopy. His last colonoscopy was 13 years ago. He denies any abdominal pain or blood in stool. [facility] Medical History Wears glasses Wears dentures Cancer Depression Anxiety Alcohol use Arthritis Excessive bleeding Easy bruising High cholesterol Injury of head and neck Injury of back Gastric reflux Former smoker Leg cramps PONV (postoperative nausea and vomiting) Wears hearing aid HTN (hypertension) Home Medications ?Medication ?Instructions ?Recorded ?Last Taken ?Type atorvastatin 10 mg tablet 10 mg PO DAILY 07/21/14 07/29/14 05:15 History lisinopril 5 mg tablet 5 mg PO DAILY 07/21/14 10/18/20 History acetaminophen 325 mg tablet 325 mg PO ONCE PRN pain 08/26/24 Unknown History (Tylenol) hydrochlorothiazide 25 mg tablet 25 mg PO DAILY 08/26/24 Unknown History sildenafil 25 mg tablet 20 mg PO QDAY PRN ED 08/26/24 Unknown History calcium carbonate ([facility] 1,000 mg PO BID PRN dyspepsia 10/24/24 Unknown History Heartburn Chew) nortriptyline 50 mg capsule 50 mg PO QHS 10/24/24 Unknown History quetiapine 25 mg tablet 25 mg PO QHS 10/24/24 Unknown History Allergy/AdvReac Type Severity Reaction Status Date / Time No Known Allergies Allergy Verified 10/31/24 08:21 Family History Mother Colon polyp Surgical History History of prostatectomy History of repair of right rotator cuff History of meniscectomy of right knee History of surgery History of hernia surgery Hx of colonoscopy Social History Smoking Status: Former smoker Past Medical/Surgical History Planned Operation Planned Operative Procedure(s): COLONOSCOPY S.O.S: No Previous Hospitalizations/Surgeries HX Hospitalizations: No HX of Surgeries: KNEE SCOPE 2010 HYDROCELE 00'S HERNIA x3 radical prostatectomy 2014 Any Problems With Anesthesia: Yes (PONV, Very agitated waking up/ long time waking after Colonoscopy) You/Your Family Experience Fever (Hyperthermia) With Anes: No Cholinesterase deficiency: No Cardiovascular Hx Chest Pain within Last 2 months: No Hx of Irregular Heartbeat and/or Afib: No Hx Heart Attack: No Hx Congestive Heart Failure: No Hx Rheumatic Fever: No Hx Hypertension: Yes (per pt, controlled on meds) Hx Internal Defibrillator: No Hx Pacemaker: No Hx Cardiac Catheterization: No Hx Cardiac Surgery/Stents/Etc.: No Hx Stress Test: Yes (2013) Hx Pain in Legs when Walking/Leg Cramps: No Respiratory Chronic Cough: No HX of Shortness of Breath: No Hoarseness: No Hx Chronic Obstructive Pulmonary Disease (COPD): No Hx Asthma: No Hx Emphysema: No Hx Sleep Apnea: No CPAP: No BIPAP: No Hx Respiratory Tract Infection/Cold (presently): No Do You Snore Loudly (louder than talking or can be heard): No Do You Often Feel Tired/ Fatigued/ Sleepy Dring Daytime?: No Has Anyone Observed You Stop Breathing During Sleep?: No Result (for STOP score): Negative Hx Smoking: Yes (QUIT 14 yrs ago/1.5ppd for 34 yrs) Smoking Status: Former smoker Gastrointestinal Controlled With Meds: No Hx Gastrointestinal Disorders: No Hx Gastrointestinal Bleed: No Hx Ulcer: No Hx Hiatal Hernia: No Difficulty Chewing/Swallowing: No Special diet followed at home: No Hx Unplanned Weight Loss of 20#: No HX Unplanned Weight Gain of 20#: No Neurological Hx Seizures: No HX Syncope/Blackout Spells/Unconsciousness: No Hx Transient Ischemic Attacks (TIA): No Hx Multiple Sclerosis: No Hx Parkinson's Disease: No Hx Head/Neck Injury: Yes (head injury and neck injury in the past) Hx Headaches: No Hx Back Injury/Pain: Yes (occ back pain) Recent Onset of Speech Difficulty: No Restless Legs: Yes Does patient have nerve stimulator: No Blood Disorder Hx Leukemia: No Bleeding Tendencies: Yes (bleeds easily and bruises easily) Hx Deep Vein Thrombosis: No Hx High Cholesterol: Yes (ON MED) Blood Transmitted Disease: No Hx Hepatitis: No Hx Cirrhosis: No Hx Anemia: No Hx Blood Disorders: No Genitourinary Hx Renal Disease: No (hx prostatectomy) Musculoskeletal Hx Arthritis: Yes Hx Rheumatoid Arthritis: No Hx Gout: No Recent Onset of an Orthopedic Problem: No Endocrine Hx Diabetes: No Thyroid Disease: No Hx Steroid Therapy: No Psycho/Social Hx Substance Use: No Hx Alcohol Use: Yes (occ) Hx Anxiety: No Hx Depression: No Mental Illness: No Hx Dementia: No Miscellaneous Hx Cancer: Yes (PROSTATE 2015) Recent Exposure to Contagious Disease: No Hx of C-Diff: No Any Loose Teeth: No (denture/partial) Allergies No Known Allergies Allergy (Verified 10/31/24 08:21) Discharge Is Pt Admitted From a Halfway, or a Nursing Home: No Who Could Help: After D/C, Where Do you Plan to Go: Return Home From the [facility] History Number of Risk Factors: 3 Vital Signs Vital Signs Vital Signs: 10/31/24 08:24 10/31/24 08:24 Temperature 97.2 F L Temperature Source Temporal Pulse Rate 88 Respiratory Rate 16 Respiratory Pattern Normal Blood Pressure 153/92 H Blood Pressure Mean 112 Blood Pressure Source Monitor Blood Pressure Position Sitting Blood Pressure Location Left Arm Pulse Ox 97 Oxygen Delivery Method Room Air Weight Weight: 185 lb 3.013 oz Body Mass Index (BMI) 24.4 Physical Exam Const alert and oriented x3 HEENT normocephalic Eyes PERRL Resp normal respiratory effort and normal air movement Cardio regular rate and regular rhythm GI soft to palpation, non-tender and non-distended Extremity normal to inspection Assessment & Plan Assessment/Plan (1) Encounter for screening for malignant neoplasm of colon: PLAN: I explained endoscopy in detail to the patient. I explained the risks including but not limited to stroke or heart attack with anesthesia, perforation of the GI tract, bleeding, infection. I explained that any of these could necessitate further emergency surgery. The patient understands and all questions were answered sufficiently. The patient wishes to proceed with procedure. Rudolph Garcia MD Pager: [facility] [address] [place] [address], [address] [place] [address] Office: Surgery Risks - Colonoscopy Risks Include but are not Limited To: Risks include but are not limited to: Bleeding, perforation requiring further surgery, inability to complete colonoscopy requiring barium enema.
--- NOTE | 2024-10-31 09:29 | OP.COLON_ITS ---
Patient Name: Jorden Morocho Procedure Date: 10/31/2024 8:56 AM Date of : 1955 Age: 69 Procedure: Colonoscopy Indications: Screening for colorectal malignant neoplasm Providers: Rudolph Garcia MD Referring MD: Kong Mckinnon MD Medicines: Propofol per Anesthesia Patient Profile: This is a 69 year old male. Refer to note in patient chart for documentation of history and physical. Last Colonoscopy: more than 10 years ago. Complications: No immediate complications. Procedure: Pre-Anesthesia Assessment: - Prior to the procedure, a History and Physical was performed, and patient medications and allergies were reviewed. The patient's tolerance of previous anesthesia was also reviewed. The risks and benefits of the procedure and the sedation options and risks were discussed with the patient. All questions were answered, and informed consent was obtained. Prior Anticoagulants: The patient has taken no anticoagulant or antiplatelet agents. After reviewing the risks and benefits, the patient was deemed in satisfactory condition to undergo the procedure. After I obtained informed consent, the scope was passed under direct vision. Throughout the procedure, the patient's blood pressure, pulse, and oxygen saturations were monitored continuously. The pediatric colonoscope was introduced through the anus and advanced to the cecum, identified by appendiceal orifice and ileocecal valve. The colonoscopy was performed without difficulty. The patient tolerated the procedure well. The quality of the bowel preparation was good. The ileocecal valve, appendiceal orifice, and rectum were photographed. Scope In: 9:12:02 AM Scope Withdrawal Time 0 hours 5 minutes 35 seconds Scope Out: 9:24:54 AM Total Procedure Duration Time 0 hours 12 minutes 52 seconds Findings: The entire examined colon appeared normal on direct and retroflexion views. Impression: - The entire examined colon is normal on direct and retroflexion views. - No specimens collected. Recommendation: - Discharge patient to home. - Resume previous diet. - Continue present medications. - Repeat colonoscopy is not recommended due to current age (66 years or older) for screening purposes. Procedure Code(s): --- Professional --- 57262, Colonoscopy, flexible; diagnostic, including collection of specimen(s) by brushing or washing, when performed (separate procedure) Diagnosis Code(s): --- Professional --- Z12.11, Encounter for screening for malignant neoplasm of colon CPT copyright 2021 [employer]. All rights reserved. The codes documented in this report are preliminary and upon certified procedural coder review may be revised to meet current compliance requirements. Rudolph Garcia MD 10/31/2024 9:28:52 AM This report has been signed electronically. Number of Addenda: 0 Note Initiated On: 10/31/2024 8:56 AM
--- NOTE | 2024-10-31 09:29 | OP.CCLET_ITS ---
10/31/2024 Kong Mckinnon MD [address] [place] [address] Re : Colonoscopy procedure for Jorden Morocho Dear Dr. Mckinnon This procedure was performed on Thursday, October 31, 2024. My impressions and recommendations are as follows: Impressions : - The entire examined colon is normal on direct and retroflexion views. - No specimens collected. Recommendations : - Discharge patient to home. - Resume previous diet. - Continue present medications. - Repeat colonoscopy is not recommended due to current age (66 years or older) for screening purposes. My findings are described in the full procedure note, which is enclosed. If I can be of further assistance, please feel free to contact me at Doctor phone number(s): , Work: . Sincerely, Rudolph Garcia MD 10/31/2024 9:28:52 AM This report has been signed electronically.
--- NOTE | 2024-10-31 09:36 | PCM.POST.ANE ---
Anesthesia: Postop Eval I Current Vital Signs Temperature: 97.5 F Pulse Rate: 81 Blood Pressure: 107/76 Respiratory Rate: 16 Pulse Ox: 97 Oxygen Delivery Method: Room Air Assessment Airway patent: Yes Spontaneous unlabored respirations: Yes Mental status: Asleep nausea: No Vomiting: No Anesthesia Complication: No Fluid Hydration Crystalloid volume administer (ml): 45 Total IV fluid infused: 45 Progress Note Anesthesia document: Postop Eval 1 completed: Yes
--- NOTE | 2024-10-31 10:05 | PCM.POSTANE2 ---
Anesthesia Postop Eval I Sum Postop Eval Completion status Anesthesia document: Postop Eval 1 completed: Yes Anesthesia Postop Eval I Summary Anesthesia Postop Eval I Summary: Anesthesia Postop Eval I: Assessment Summary Airway patent Yes 10/31/24 09:38 [email or web address] Spontaneous unlabored Yes 10/31/24 09:38 [email or web address] respirations Mental status Asleep 10/31/24 09:38 [email or web address] nausea No 10/31/24 09:38 [email or web address] Vomiting No 10/31/24 09:38 [email or web address] Anesthesia Postop Eval I: Fluid Summary Crystalloid volume administer 45 10/31/24 09:38 [email or web address] (ml) Colloids volume administered ( ml) Blood Product volume administered (ml) Total IV fluid infused 45 10/31/24 09:38 [email or web address] Anesthesia Postop Eval I: Summary Notes Anesthesia Complication No 10/31/24 09:38 [email or web address] Anesthesia Complication Comment: Post-operative progress note Anesthesia: Postop Eval II Evaluation Mental status: Awake Pain Level: 0 nausea: No Vomiting: No
== END 2024-10-31 10:55 | disposition home or self-care (01) ==
LOC: EN 08:04 → AC 08:05
PROVIDERS: PCP Family Medicine; Referring Provider Family Medicine; Visit Provider Surgery
PROC: 0DJD8ZZ Inspection of Lower Intestinal Tract, Via Natural or Artificial Opening Endoscopic (ICD-10-PCS; CPT 45378; principal; 2024-10-31 09:10)
DX: Z12.11 Encounter for screening for malignant neoplasm of colon (principal); K21.9 Gastro-esophageal reflux disease without esophagitis; I10 Essential (primary) hypertension; Z87.891 Personal history of nicotine dependence; E78.00 Pure hypercholesterolemia, unspecified
CPT/HCPCS: G0121; A4216; J2405

== ENCOUNTER → 2025-02-06 | Outpatient (CLI) | payer MEDICARE, OTHER, SELFPAY ==
[2025-02-06 13:20] LABS: AST(SGOT) 15 U/L (<=37); Alanine Aminotransfer ALT/SGPT 12 U/L (<=46); Albumin, Serum 4.2 g/dL (3.4-4.8); Alkaline Phosphatase 77 U/L (40-129); Anion Gap 14 (5-15); BUN 18 mg/dL (4-19); BUN/Creat Ratio 13.9 RATIO (10-20); Calcium,Total 10.0 mg/dL (7.6-11.0); Carbon Dioxide 22.1 mmol/L (21.0-32.0); Chloride 100 mmol/L (98-108); Cholesterol 212 mg/dL (<=200); Globulin 2.9 g/dL (2.2-4.2); Glucose 101 mg/dL (70-99); Low Density Lipoprotein Calc. 129 mg/dL; Potassium 4.0 mmol/L (3.3-5.1); Triglycerides 84 mg/dL; Very Low Density Lipoprotein 17 mg/dL (5-40); cholesterol:hdl ratio screen 3.21
== END | disposition home or self-care (01) ==
LOC: MFPLAB 11:13
PROVIDERS: PCP Family Medicine; Referring Provider Family Medicine; Visit Provider Family Medicine
DX: I10 Essential (primary) hypertension (principal)
CPT/HCPCS: 36415; 80053; 80061

== ENCOUNTER → 2025-07-01 | Outpatient (CLI) | payer MEDICARE, OTHER, SELFPAY ==
[2025-07-01 18:22] LABS: PSA,Total - Annual Screen < 0.02 ng/mL (0.02-4.00)
== END | disposition home or self-care (01) ==
LOC: MFPLAB 16:10
PROVIDERS: PCP Family Medicine; Visit Provider Nurse Practitioner Family
DX: Z13.1 Encounter for screening for diabetes mellitus (principal); Z85.46 Personal history of malignant neoplasm of prostate; Z12.5 Encounter for screening for malignant neoplasm of prostate
CPT/HCPCS: 36415; 84153; G0103